=== PATIENT | female | born 1945 | race African-American/Black ===

== ENCOUNTER → 2021-04-09 | Outpatient (CLI) | payer OTHER ==
[~2021-04-09] MED LIST: ADULT LOW DOSE81 MG; DARVOCET-N 1001 EACH PO; HUMALOG100 UNIT/1; KEFLEX500 MG PO; LANTUS; LOVASTAT20; METOCLOPRAMIDE10 MG; PRILOSEC 20 MG20 MG; PROZAC 20 MG20 M1; ULTRACET TABLE1 EACH
[2021-04-09 12:37] LABS: CALCIUM 9.3 mg/dL (8.5-10.1); POTASSIUM 4.2 mmol/L (3.5-5.1)
== END ==
LOC: M.LAB 12:04
PROVIDERS: ATTEND Nurse Practitioner
DX: I42.8 Other cardiomyopathies (principal)